=== PATIENT | male | born 1995 | race Caucasian/White ===

== ENCOUNTER 2023-07-28 13:30 | Emergency (ER) | payer SELFPAY ==
[2023-07-28 13:40] VITALS: BP 113/83
--- NOTE | 2023-07-28 15:39 | ED.SKININJ ---
HPI-Injury
General
Chief Complaint: Skin Problem
Source: patient
Exam Limitations: none
Time Seen by Provider: 07/28/23 15:06
Travel History
Have you had any contact with someone who has COVID-19?: No
Do you have any symptoms of coronavirus? Fever > 100 degrees, chills, cough, shortness of breath, sore throat, loss of taste or smell, muscle aches, or headache?: No
History of Present Illness-Injury
Initial Injury comments:
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 He was unclogging the outlet of his lawnmower while it was running and his knee gave out and his finger fell and. The lawnmower blade hit his
finger. Last tetanus unknown. No other complaints
Phy Exam
Physical Exam
Physical Exam:
General: Well-appearing male no acute respiratory distress
HEENT: Normocephalic atraumatic neck is supple
Skin: 2 cm laceration over the volar radial aspect distal portion right ring finger this is flap in nature held on by the most ulnar aspect by centimeters skin bridge no muscle or tendon or bone involvement
Musculoskeletal exam: Good flexion and extension at the DIP joint
Neurologic: Good sensation distal portion right ring finger
Vascular: Brisk cap refill right ring finger
Course
Orders/Labs/Results
Orders:
Orders
07/28/23 13:42
Finger(s)/Thumb 2 View Rt [CR Finger(s)/thumb Min 2 Vw Rt] Urgent
Comment:
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
Indicate Which Finger:: Ring Finger
07/28/23 15:33
Tetanus/Diphth/Acelpertussis [Adacel] 0.5 ml IM .ONCE ONE
Vital Signs
Initial and Last Documented VS:
Initial Vital Signs
Temp Pulse Resp BP Pulse Ox
98.2 F 101 17 113/83 99
07/28/23 13:40 07/28/23 13:40 07/28/23 13:40 07/28/23 13:40 07/28/23 13:40
Last Documented Vital Signs
Temp Pulse Resp BP Pulse Ox
98.2 F 101 17 113/83 99
07/28/23 13:40 07/28/23 13:40 07/28/23 13:40 07/28/23 13:40 07/28/23 13:40
MDM/Problems Addressed
Differential Diagnosis Includes:
Laceration right ring finger. X-ray pending to evaluate for bony injury. No clinical evidence of tendon injury.
I reviewed x-rays of the right finger which are negative for fracture. Tetanus vaccine will be updated. The wound was copiously cleansed with saline solution then anesthetized in a local fashion with 1% lidocaine. The wound was then closed with
5-0 Prolene sutures in a simple erupted fashion. Total of 6 sutures were required.
He had his vaccine updated. A dressing was applied. Stable for discharge wound care instructions
*Critical Care Note
Total Time (30-74mins, 75-104mins- exclusive of procedures): Not Applicable
ED Attending Note
-
Portions of this chart may have been created with voice recognition software.� Occasional wrong word or��sound alike� substitutions may have occurred due to the inherent limitations of voice recognition software.
Discharge Plan
Departure
Patient Disposition: Home (Routine Discharge)
Date of Disposition: 07/28/23
Time of Disposition: 15:43
Patient with high blood pressure during this ER visit?: No
Discharge Problem:
Laceration
Instructions: Laceration Repair With Stitches ED
Referrals:
UNKNOWN - PT DOES,NOT KNOW [Family Provider] -
Activity Restrictions/Additional Instructions:
Keep clean. You may use ibuprofen or Tylenol for pain. Have sutures removed in 12 to 14 days.
Discharge Date and Time
Print Language: UZBEK
[2023-07-28] MEDS: ADACEL 0.5 ML IM (16:25)
[2023-07-28 16:39] VITALS: BP 119/76
== END 2023-07-28 16:40 | disposition home or self-care (01) ==
LOC: EMR 13:30
PROVIDERS: EMERGENCY PHYSICIAN Emergency Medicine
DX: S61.214A Laceration without foreign body of right ring finger without damage to nail, initial encounter (principal); W19.XXXA Unspecified fall, initial encounter; Y93.02 Activity, running; Z23 Encounter for immunization
CPT/HCPCS: 99282; 12001; 90471; 73140; 90715

== ENCOUNTER 2023-08-12 21:21 | Emergency (ER) | payer SELFPAY ==
[2023-08-12 21:22] VITALS: BP 130/70
--- NOTE | 2023-08-12 21:57 | ED.SKININJ ---
HPI-Injury
General
Chief Complaint: Wound Check/Suture Removal
Source: patient
Exam Limitations: none
Time Seen by Provider: 08/12/23 21:49
Travel History
Have you had any contact with someone who has COVID-19?: No
Do you have any symptoms of coronavirus? Fever > 100 degrees, chills, cough, shortness of breath, sore throat, loss of taste or smell, muscle aches, or headache?: No
History of Present Illness-Injury
Initial Injury comments:
28-year-old male presents for suture removal of right hand long finger laceration. He was here 2 weeks ago and had sutures placed in the finger he cannot find anyone to take him out and presents here. No complaints offered
Phy Exam
Physical Exam
Physical Exam:
General: Well-appearing male no acute distress
Skin: Well-appearing right long finger with intact Prolene sutures. No surrounding erythema or drainage
Good sensation and capillary refill to the long finger
Course
Vital Signs
Initial and Last Documented VS:
Initial Vital Signs
Temp Pulse Resp BP Pulse Ox
98.4 F 74 18 130/70 98
08/12/23 21:22 08/12/23 21:22 08/12/23 21:22 08/12/23 21:22 08/12/23 21:22
Last Documented Vital Signs
Temp Pulse Resp BP Pulse Ox
98.4 F 74 18 130/70 98
08/12/23 21:22 08/12/23 21:22 08/12/23 21:22 08/12/23 21:22 08/12/23 21:22
MDM/Problems Addressed
Differential Diagnosis Includes:
Here for suture removal. No signs of infection. Sutures removed without incident. Wound care instructions were given
*Critical Care Note
Total Time (30-74mins, 75-104mins- exclusive of procedures): Not Applicable
ED Attending Note
-
Portions of this chart may have been created with voice recognition software.� Occasional wrong word or��sound alike� substitutions may have occurred due to the inherent limitations of voice recognition software.
Discharge Plan
Departure
Patient Disposition: Home (Routine Discharge)
Date of Disposition: 08/12/23
Time of Disposition: 21:58
Patient with high blood pressure during this ER visit?: No
Discharge Problem:
Visit for suture removal
Instructions: Wound Care (DC)
Activity Restrictions/Additional Instructions:
Return if needed
Interventions
Interventions:
*Risk Screen - Suicide Last Done: 08/12/23 21:22
*Neglect/Abuse Screening Last Done: 08/12/23 21:22
*Nursing Disposition Last Done: 08/12/23 22:03
Discharge Date and Time
Discharge Date/Time: 08/12/23 22:04
Print Language: KITTITIAN
== END 2023-08-12 22:04 | disposition home or self-care (01) ==
LOC: EMR 21:21
PROVIDERS: EMERGENCY PHYSICIAN Emergency Medicine
DX: Z48.02 Encounter for removal of sutures (principal)
CPT/HCPCS: 99281